=== PATIENT | female | born 1995 | race Hispanic/Latino ===

== ENCOUNTER 2016-11-16 04:34 | Inpatient (IN) ==
[2016-11-16 04:48] LABS: URINE SOURCE VOIDED
[2016-11-16] MEDS ORDERED: TYLENOL PO PRN (04:55)
[2016-11-16] MEDS ORDERED: KEFZOL 1 GM/D5W 1 GM/50 ML IVPB IV PRN (04:55)
[2016-11-16] MEDS ORDERED: ZOFRAN IV PRN (04:55)
[2016-11-16] MEDS ORDERED: PITOCIN 30 UNITS/LR 30 UNITS/500 ML IV.SOLN IV SCH (04:55)
[2016-11-16] MEDS ORDERED: REGLAN PO ONE (04:55)
[2016-11-16] MEDS ORDERED: AMPICILLIN 2 GM/NS 2 GM/100 ML IVPB IV ONE (04:55)
[2016-11-16] MEDS ORDERED: STADOL IV PRN (04:55)
[2016-11-16] MEDS ORDERED: LR 1,000 ML IV SCH (04:55)
[2016-11-16] MEDS ORDERED: PEPCID PO PRN (04:55)
[2016-11-16] MEDS ORDERED: PEPCID PO ONE (04:55)
[2016-11-16] MEDS ORDERED: PEPCID IV PRN (04:55)
[2016-11-16] MEDS ORDERED: SODIUM CHLORIDE 0.9% INJ PRN (04:56)
[2016-11-16] MEDS ORDERED: PHENERGAN IV PRN (04:56)
[2016-11-16] MEDS ORDERED: SODIUM CHLORIDE 0.9% INJ SCH (05:00)
[2016-11-16 05:02] LABS: BILIRUBIN URINE NEGATIVE (NEGATIVE); BLOOD URINE NEGATIVE (NEGATIVE); CLARITY CLEAR (CLEAR); COLOR YELLOW; GLUCOSE URINE NEGATIVE (NEGATIVE); LEUKOCYTES URINE TRACE (NEGATIVE); NITRITE URINE NEGATIVE (NEGATIVE); PH URINE 6.5; PROTEIN URINE 1+(30 mg/dL) mg/dL (NEGATIVE); SP GRAVITY URINE 1.015; UROBILINOGEN URINE NORMAL
[2016-11-16 06:55] LABS: MANUAL DIFF NEEDED? NO
[2016-11-16 06:57] LABS: BASO% 0.2 % (0.0-0.8); EOS# 0.04 X1000 (0.0-0.7); EOS% 0.3 % (0.0-10.0); HEMOGLOBIN 12.4 g/dL (12.0-16.0); IMM GRAN# 0.03 X1000 (0.0-0.04); IMM GRAN% 0.3 % (0.0-0.5); LYMPH# 1.26 X1000 (1.2-3.4); LYMPH% 10.7 % (20.5-51.1); MCH 30.8 PG (27-31); MCHC 34.4 g/dL (33-37); MCV 89.3 FL (81-99); MONO# 0.86 X1000 (0.11-0.59); MONO% 7.3 % (1.7-9.3); MPV 11.2 FL (7.4-10.4); NEUT% 81.2 % (42.2-75.2); PLT 249 X1000 (130-400); RBC 4.03 XMIL (4.2-5.4)
[2016-11-16] MEDS ORDERED: EUCERIN CREAM TOP ONE (07:06)
[2016-11-16] MEDS ORDERED: XYLOCAINE-MPF 1% INJ ONE (07:07)
[2016-11-16] MEDS ORDERED: MINERAL OIL PO ONE (07:23)
[2016-11-16] MEDS ORDERED: AMPICILLIN 1 GM/NS 1 GM/50 ML IVPB IV SCH (08:56)
[2016-11-16] MEDS ORDERED: MINERAL OIL PO PRN (10:05)
[2016-11-16] MEDS ORDERED: BENADRYL IV PRN (10:05)
[2016-11-16] MEDS ORDERED: PITOCIN IM PRN (10:05)
[2016-11-16] MEDS ORDERED: HYDROXYZINE PO PRN (10:05)
[2016-11-16] MEDS ORDERED: AMBIEN PO PRN (10:05)
[2016-11-16] MEDS ORDERED: BENADRYL PO PRN (10:05)
[2016-11-16] MEDS ORDERED: PERI MEDS (DERMOPLAST/NUPERCAINAL/TUCKS) MISC PRN (10:05)
[2016-11-16] MEDS ORDERED: BOOSTRIX VACCINE IM ONE (10:05)
[2016-11-16] MEDS ORDERED: PITOCIN 20 UNITS/LR 20 UNITS/1,000 ML IV.SOLN IV SCH (10:05)
[2016-11-16] MEDS ORDERED: NORCO-5 PO PRN (10:05)
[2016-11-16] MEDS ORDERED: M-M-R II VACCINE SUBQ ONE (10:05)
[2016-11-16] MEDS ORDERED: HYDROXYZINE IM PRN (10:05)
[2016-11-16] MEDS ORDERED: CYTOTEC PO PRN (10:05)
[2016-11-16] MEDS ORDERED: NORCO-10 PO PRN (10:05)
[2016-11-16] MEDS ORDERED: XYLOCAINE-MPF 1% INJ PRN (10:05)
[2016-11-16] MEDS ORDERED: PITOCIN 30 UNITS/LR 30 UNITS/500 ML IV.SOLN IV ONE (10:05)
[2016-11-16] MEDS: MOTRIN PO PRN (13:27)
[2016-11-16] MEDS: PERICOLACE PO SCH (20:28)
[2016-11-17 06:12] LABS: HEMATOCRIT 25.8 % (37.0-47.0); HEMOGLOBIN 8.6 g/dL (12.0-16.0); MCH 30.5 PG (27-31); MCHC 33.3 g/dL (33-37); MCV 91.5 FL (81-99); MPV 10.7 FL (7.4-10.4); RBC 2.82 XMIL (4.2-5.4)
--- NOTE | 2016-11-17 14:13 | PROGRESS NOTE ---
DATE: 11/17/2016 SUBJECTIVE: She is day 1. Her vital signs are stable. She is afebrile. Pulse rate is in the low 100. The patient states she is ambulating, voiding, tolerating p.o. well. She has not had any weakness or dizziness. PHYSICAL EXAMINATION: Abdomen: Within normal limits with a distended abdomen. Firm uterus. Nontender. Extremities: No cyanosis, clubbing, edema in her extremities. LABORATORY: Post delivery hemoglobin and hematocrit of 8.6/25.8. PLAN: She is down from 12. However, she again has no weakness or dizziness when ambulating and she is not currently bleeding, so will continue with present management and discharge in the morning. cc: MD Grisel Westfall MD
[2016-11-17] MEDS: PERICOLACE PO SCH (21:05)
[2016-11-18] MEDS: MOTRIN PO PRN (00:40)
[2016-11-19] MEDS ORDERED: HEMOCYTE-F TABLET PO SCH (09:00)
== END 2016-11-18 14:35 | disposition home or self-care (01) ==
LOC: P.OPLD 04:34 → P.LD 04:36 → P.WC 14:18
PROVIDERS: ADMIT Obstetrics & Gynecology; ATTEND Obstetrics & Gynecology